=== PATIENT | female | born 1945 | race Caucasian/White ===

== ENCOUNTER 2018-01-07 15:00 | Outpatient (RCR) | payer MEDICARE, OTHER, SELFPAY | END 2018-01-07 17:00 | disposition home or self-care (01) | LOC: PT 15:00 | PROVIDERS: Family Provider Family Medicine; Visit Provider Orthopaedic Surgery | DX: M43.16 Spondylolisthesis, lumbar region (principal); M47.812 Spondylosis without myelopathy or radiculopathy, cervical region | CPT/HCPCS: 97010; 97012; 97035; 97110; 97112; 97164 ==